=== PATIENT | male | born 1940 | race Caucasian/White ===

== ENCOUNTER 2017-03-02 05:54 | Inpatient (IN) | payer MEDICARE ==
[2017-03-02] VITALS (11 sets, daily range): BP systolic 101–154; BP diastolic 53–87; PULSE 55–71; RESP 13–20; O2SAT 92–99
[~2017-03-02] VITALS: Ht 182.9 cm; Wt 75.4 kg
[2017-03-02] MEDS: Lactated Ringer's 1,000 ML IV SCH ×3 (05:00→07:41)
[~2017-03-02 05:54] MED LIST: ASPI-973 PO; HYDR25TA4 PO; IPRA4AER IH; LEVO125T6 PO; LISI-567 PO; OMEG1CAP2 PO; SIMV40TA5 PO; TIOT18CA3 IH
[2017-03-02] MEDS ORDERED: CeFAZolin 2 Gm/50 mL D5W IV Premix IV ONE ×2 (06:00)
[2017-03-02] MEDS ORDERED: Gentamicin Inj 160 MG in Syringe 1 EACH IRRIGATION ONE (06:00)
[2017-03-02] MEDS ORDERED: Bupivacaine Liposome 1.3% 20 mL Inj ONE (07:17)
--- NOTE | 2017-03-02 07:19 | PCM.HPANE ---
Patient Data Surgeon Admitting Provider: Attending Provider:Jerome Tomlinson MD Primary Care Physician:Yogi Corey DO Other Provider:Moe Saleh Anesthesia Reason for Visit Right Shoulder Arthritis Ht/WT & BMI Height (Feet): 6 Height (Inches): 0.00 Weight (Kilograms): 75.4 Body Mass Index 22.00 Allergies Coded Allergies: No Known Allergies (Unverified , 02/22/17) Past Anesthesia History Anesthesia History: Denies:: Abnormal Airway, Anesthesia Reactions, Difficult Intubation, Fam Anesthesia Reaction, Fam Malignant Hypertherm, Malignant Hyperthermia Diabetes History Hx Diabetes?: No MRSA MRSA: No Medications Blood Thinner: Aspirin Hypertension Medication: Yes Home Meds Incl Beta [place]: No Reported Medications Tiotropium [place] (Spiriva)18 Mcg Cap.w.dev18 Mcg IH DAILY #1 PKG Ref 0 02/22/17 Simvastatin 40 Mg [id number] Mg PO HS 30 Days Ref 0 02/22/17 [place]-3 Acid Ethyl Esters (Lovaza)1 Gm Capsule2 Gm PO BID #30 CAPSULE Ref 0 02/22/17 Lisinopril 20 Mg [id number] Mg PO BID 30 Days Ref 0 02/22/17 Levothyroxine 125 Mcg [id number] Mcg PO DAILY For Thyroid Replacement Ref 0 02/22/17 Hydrochlorothiazide 25 Mg [id number] Mg PO DAILY 30 Days Ref 0 02/22/17 Albuterol/Ipratropium (Combivent Respimat Inhal [place])120 Spr/4 Gm Inhaler1 Puff IH BID #1 INH Ref 0 02/22/17 Aspirin 81 Mg [id number] Mg PO DAILY Ref 0 02/22/17 Last Time Dose Received Used spiriva and levothyroxine today No other meds History History of ENT Problems?: Yes HEENT History: Positive for:: Cataracts (bilateral surgery) Hearing Problem Denies:: Abnormal Airway Difficult Intubation Dysphagia Sinus Problem TMJ Denture Type: Full- Upper Full- Lower Teeth Condition: Missing Teeth Hx of Heart Problems?: Yes Cardiovascular History: Positive for:: Hypertension Valvular Heart Disease (echo 2013 ef 60-65%) Denies:: Abdominal Aortic Aneurism Atrial Fibrillation Cardiac Surgery Chest Pain Congestive Heart Failure Coronary Artery Disease Edema Heart Murmur Other History/Comments No CP or hx RI; Greater than 4 mets Hx of Respiratory Problem?: Yes Respiratory History: Positive for:: COPD Dyspnea (SORENSEN-INTERMITTANT PT FELLS THIS IS R/T COPD) Denies:: Asthma Emphysema Oxygen Administration Pneumonia Tuberculosis Use of C-PAP Machine Use of Inhalers / NEBS Other History/Comment Breathing at baseline Hx Neurologic Problems?: No Neurological History: Denies:: CVA Headaches Multiple Sclerosis Parkinson's Disease Seizures Hx of GI Problems?: Yes Hx of Problems?: No Genitourinary History: Denies:: Kidney Stones Urinary Tract Infection Male Hx: Denies:: Prostate Problems Scrotal Mass Testicular Surgery Skin History: Denies:: History Skin Disorders? Pressure Ulcers Hx Musculoskeletal Problems?: Yes Musculoskeletal History: Positive for:: Degenerative Joint Musculoskeletal Trauma (right shoulder current admission problem) Osteoarthritis Denies:: Back Injury Fibromyalgia Joint Replacement Hx of Psycho/Social Problems?: No Psycho Social History: Denies:: Anxiety Hx Depression Hx Surgeries?: Yes (UMBILICAL HERNIA RPR) Hx Any Other Health Problems?: Yes Other History: Positive for:: Thyroid Disease Denies:: Cancer Endocrine Disease Hospitalization History Blood Transfusions: Denies:: Blood Transfusions Hx Diabetes: No Hx Alcohol Use: NoHx Substance Use: No Smoking Status: Former Smoker Have You Smoked inLast 12 mo: No Stop/Bang S-Snoring: Do You Snore Loudly: No T-Tired: feel tired, fatigued: No O-Obsered: Observed not breath: No P-Blood Pressure: treated: Yes B- Body Mass Index > 35 kg/m2: No A- Age over 50: Yes N- Neck Large Circumference: No G- Gender Male: Yes SATNTON Total Score: 3 Risk Assessment Category Category 1A: Patient has history of documented sleep apnea, and HAS NOT received any narcotic, sedative or anesthesia administration during this stay. Category 1B: Patient has history of documented sleep apnea, and HAS received any narcotic , sedative or anesthesia administration during this stay Category 2: Patient has SUSPECTED Obstructive Sleep Apnea, and HAS received any narcotic , sedative or anesthesia administration during this stay. Category 3: Patient has SUSPECTED Obstructive Sleep Apnea and HAS NOT received narcotic, sedative or anesthesia administration during this stay. Category 4: Outpatient in Procedural Areas with known sleep apnea or who screen positive for High Risk via the STOP/BANG questionnaire. Exam Exam Vital Signs Vital Signs Date Time Temp Pulse Resp B/P Pulse Ox O2 Delivery O2 Flow Rate FiO2 03/02/17 06:24 36.3 66 16 154/87 99 Room Air General Appearance: Alert, Oriented X3 HEENT/AIRWAY: MP 2, Neck Movement (FROM) Lungs: Clear to Auscultation, Clear to Percussion Heart: Exam Unremarkable, Regular Rate/Rhythm Meds/Labs/Diagnostics Admission Meds Current Medications Lactated Ringer's (Lr) 1,000 ml @ 120 mls/hr [id number] IV Last administered on t 05:42; Start 03/02/17 at 05:00; Stop 03/02/17 at 13:19 Plan Impression Patient chart reviewed, patient interviewed and anesthestic plan with risks, benefits, and alternatives discussed, and informed consent obtained. ASA Physical Status: ASA2 Mod Systemic Disease Anesthetic Plan: Regional Block (ISC for post-op pain control per surgeon request) Bene/Risks/Altern/Consents: Yes HP Complete Prior to Induction: Yes Mynor Costa MD Mar 02, 2017 07:13
[2017-03-02] MEDS ORDERED: diphenhydrAMINE 25 mg Capsule PO PRN (07:20)
[2017-03-02] MEDS ORDERED: Sodium Biphos-Phos 133 mL Enema RECTAL PRN (07:20)
[2017-03-02] MEDS ORDERED: Magnesium Hydroxide 10 mL Oral Concentration PO PRN (07:20)
[2017-03-02] MEDS ORDERED: MetoCLOpramide 5 mg/mL 2 mL Inj IVPUSH PRN ×2 (07:20→08:35)
[2017-03-02] MEDS ORDERED: Polyethylene Glycol (PEG) 17 Gm Powder PO PRN (07:20)
[2017-03-02] MEDS ORDERED: HYDROcodone-APAP 5-325 mg Tablet PO PRN (07:20)
[2017-03-02] MEDS ORDERED: Ondansetron 2 mg/mL 2 mL Inj IVPUSH PRN ×2 (07:20→08:35)
[2017-03-02] MEDS ORDERED: Ketorolac 15 mg/mL Inj IVPUSH PRN (07:20)
[2017-03-02] MEDS ORDERED: Tranexamic Acid 100 mg/mL 10 mL Inj ONE (07:27)
[2017-03-02] MEDS ORDERED: 0.9% Sodium Chloride 200 ML ONE (07:27)
--- NOTE | 2017-03-02 07:35 | PCM.ORTHOP ---
Orthopedic Operative Report Date of Service: Mar 02, 2017 Pre Operative Diagnosis Right shoulder degenerative joint disease, biceps tendinitis Post Operative Diagnosis Same Procedure Right total shoulder arthroplasty, open biceps tenodesis Surgeon Surgeon: Jerome Tomlinson MD Assistants: Laya Sepulveda, Lluvia Stanley Indication for Procedure Right shoulder degenerative joint disease Findings Per Dictation Details of Procedure Implant: Arthrex univers vaultlock size large glenoid, stem size 10mm with 54/ 21 head The risks, benefits, indications and alternatives, including non-operative management of open reduction and plating were discussed with the patient in detail. The patient understood this operation would be strictly for pain control and would not necessarily improve the function of the arm. The patient voiced understanding of the risks and agreed to proceed. All questions were answered to the patients satisfaction. Verbal and written consent were obtained. Description of Operation: The patient was brought to the operating room. Time out was performed in the presence of the Orthopedic and the chief controller. Preoperative antibiotics were given. Interscalene block performed by anesthesia. General anesthesia was administered. The patient was placed in a beachchair position. The right arm was prepped and draped in the usual sterile fashion. A standard deltopectoral approach was made. Blunt dissection was carried through the interval to expose the subscapularis muscle after retracting the conjoined tendon medially. Care was taken to not damage nearby neurovascular structures. The anterior humeral circumflex vessels were ligated. Kimble scissors were used to cut through the rotator interval to expose the anatomic neck of the humerus. The subscapularis tendon was tagged using # 1 Ethibond sutures. The subscapularis tendon was cut longitudinally using a Bovie. The shoulder was slowly externally rotated while peeling the inferior capsule off of the humeral neck until the shoulder was dislocated and the humeral head was exposed. There were several small loose bodies in the subscapularis recess which were removed. There was extensive erosion and flattening of the humeral head. Extensive osteophytes were present over the periphery of the humeral head. 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 The subscapularis was tucked medially. The osteophytes around the humeral head were removed using an osteotome and mallet to expose the anatomic neck. The supraspinatus and infraspinatus were found to be intact and attached to the greater tuberosity. A neck cutting guide was placed and then the cut was made with 30 degrees of retroversion using a saw. The neck was sequentially broached to the proper fit. The head trial were placed until the proper fit was obtained. A head protector sleeve was placed on the cut surface. Using a Triatt retractor the glenoid was exposed. Circumferential exposure of the glenoid from the 1 o'clock position to the 7 o'clock position was done using a Bovie taking care to stay close to the bone. The glenoid was sized and then reamed appropriately. Peg holes were drilled along with the center hole. A trial implant was placed which fit well. After removing the trial, the wound was irrigated. The peg holes were filled with manually pressurized cement and the above mentioned glenoid component was impacted until an excellent fit was obtained. Attention was then taken to the humeral head. The humeral head trial was placed the the shoulder stability was verified after reduction and found to be appropriate. The trial head and stem were removed and proper inclination was noted. Multiple #2 Fiber-wire sutures were placed in the lateral subscapularis stump on the lesser tuberosity and then through the rim of the humeral neck. The implant was assembled on the back table. The wound was irrigated. The humeral implant was impacted into the humerus until the proper fit was obtained. The shoulder was reduced and excellent stability was tested and verified. The subscapularis was then repaired using the aforementioned Fiber-wire sutures and also an 0-Vicryl suture. A proximal biceps tenotomy was performed after a distal tenodesis was performed to the pec major.. The rotator interval was closed. Hemostasis was achieved. The wound was irrigated with copious saline. Local cocktail was used which included bupivicaine. Gentamicin was injected into the joint. IV transexamic acid was used preop and intraop. The wound was then closed in layers , dressed appropriately and the shoulder was placed in an immobilizer. The patient was extubated without difficulty and transferred to the PACU in stable condition. FLORAL DEPARTMENT SPECIALIST SURGEON: During the operation, the services of physician teacher assistant were medically indicated and necessary to provide exposure of the operative site for the surgical procedure and to maintain the limb in a proper position to carry out the operation safely and efficiently. Without the qualified supply chain assistant being present, it would have extended the operative procedure and made the procedure technically more difficult to perform. Nonweightbearing to affected upper extremity. Please leave sling on at all times. You may remove sling 3 times a day to move the elbow wrist and fingers. Do not move your shoulder. PROM only, IR to body, ER to 0 degrees, FF to 90 degrees, ABD to 0 degrees. Keep your arm at neutral, NO external rotation of the arm, no resisted IR of the arm. Please keep the affected extremity elevated when possible. You may use ice and/or heat as needed for comfort. Follow-up in 2 weeks with me with 2-view xrays and for suture removal and Steri -Strip application. Follow-up with me at 6 weeks. You will have pain medications , medication for constipation and continue your aspirin 81 mg daily Grafts, Implants: Implants-See Implant Record Complications There were no periprocedural complications identified. Condition Stable Anesthetic Administered: GA Catheters: None Output, Estimated Blood Loss: 50 Blood Admin during surgery: No Surgical Cast or Splint: Shoulder Immobilizer Surgical Specimen Removed: No Specimen sent to Pathology: No copies to: Jerome Tomlinson MD, Christopher L MD Mar 02, 2017 07:34
[2017-03-02] MEDS: Senna-Docusate 8.6-50 mg Tablet PO SCH ×2 (08:30→20:17)
[2017-03-02] MEDS ORDERED: Gentamicin 40 mg/mL 2 mL Inj INJ ONE (08:30)
[2017-03-02] MEDS ORDERED: Bacitracin 50,000 unit Inj IRRIGATION ONE (08:30)
[2017-03-02] MEDS ORDERED: HYDROmorphone 1 mg/mL Inj IVPUSH PRN (08:35)
[2017-03-02] MEDS ORDERED: fentaNYL-PF 50 mCg/mL 2 mL Inj IVPUSH PRN (08:35)
[2017-03-02] MEDS ORDERED: Lactated Ringer's 500 ML IV PRN (08:35)
[2017-03-02] MEDS ORDERED: Labetalol 5 mg/mL 20 mL Inj IV PRN (08:35)
[2017-03-02] MEDS ORDERED: Lactated Ringer's 1,000 ML IV SCH (08:35)
[2017-03-02] MEDS ORDERED: Atropine 0.4 mg/mL Inj IVPUSH PRN (08:35)
[2017-03-02] MEDS ORDERED: EPHEDrine Sulfate 50 mg/mL Inj IVPUSH PRN (08:35)
[2017-03-02] MEDS ORDERED: Phenylephrine 10,000 mCg/mL Inj IVPUSH PRN (08:35)
[2017-03-02] MEDS ORDERED: Hip/Knee Infiltration Cocktail INFILTRATE ONE ×7 (08:40)
--- NOTE | 2017-03-02 10:49 | PCM.ANEP1 ---
Post Anesthesia PACU Phase 1 Assessment Vital Signs Vital Signs Date Time Temp Pulse Resp B/P Pulse Ox O2 Delivery O2 Flow Rate FiO2 03/02/17 10:40 59 15 101/58 95 Nasal Cannula 2 03/02/17 10:25 58 13 105/53 96 Nasal Cannula 2 03/02/17 10:10 55 14 107/58 94 Nasal Cannula 2 03/02/17 10:05 64 16 101/53 92 Room Air 03/02/17 10:00 62 15 107/73 98 Simple Mask 10 03/02/17 09:55 36.8 64 17 134/62 98 Simple Mask 10 03/02/17 06:24 36.3 66 16 154/87 99 Room Air Anesthetic Administered: GA Level of Alertness: Awake, talking PAGAN's with Equal Strength: No (s/p interscalene block) Pain: No Nausea or Vomiting: No CV Function & Hydration Stable: Yes Airway Device: Lungs: Clear to Auscultation, Clear to Percussion PACU Phase 2 Assessment Complications: No Follow up Care: No Patient Instructions Provided: N/A Mynor Costa MD Mar 02, 2017 10:49
--- NOTE | 2017-03-02 10:56 | DRSVH ---
PROCEDURE: X-RAY RIGHT SHOULDER, MINIMUM TWO VIEWS ([id number]) INDICATIONS: POST RIGHT SHOULDER ARTHROPLASTY TECHNIQUE: 2 views of the shoulder were acquired. COMPARISON: None. FINDINGS: Bones: No fractures or dislocations. No suspicious bony lesions. Visualized ribs appear intact. Soft tissues: No suspicious soft tissue calcifications. IMPRESSION: Expected postsurgical changes after right total shoulder arthroplasty. Dictated by: Pascual Palm M.D. on 03/02/2017 at 10:55 Approved by: Pascual Palm M.D. on 03/02/2017 at 10:55
--- NOTE | 2017-03-02 11:00 | NUR ---
Arrived on Unit Patient arrived on floor from PACU in stable condition. Patient ambulated from stretcher to bed with SBA. Patient denies pain and nausea at this time. Interscalene block in place. Dressing CDI. VSS. A&Ox3. NS@80. RA 94%. Patient orientated to call light, bed, and how to order meals. Call light and tray table within reach. Will continue to monitor patient hourly.
[2017-03-02] MEDS: 0.9% Sodium Chloride 1,000 ML IV SCH ×2 (11:15→23:58)
[2017-03-02] MEDS ORDERED: Glycopyrrolate 0.2 MG/ML 1mL Inj ONE (11:24)
[2017-03-02] MEDS ORDERED: Dexamethasone 4 mg/mL Inj ONE (11:24)
[2017-03-02] MEDS ORDERED: EPHEDrine/NS 5 mg/mL 5 mL Syringe ONE (11:24)
[2017-03-02] MEDS ORDERED: Ondansetron 2 mg/mL 2 mL Inj ONE (11:24)
[2017-03-02] MEDS ORDERED: Propofol 10,000 mCg/mL 20 mL Inj ONE (11:24)
[2017-03-02] MEDS ORDERED: Succinylcholine Chloride 20 mg/mL 5 mL Inj ONE (11:24)
[2017-03-02] MEDS ORDERED: fentaNYL-PF 50 mCg/mL 2 mL Inj ONE (11:24)
--- NOTE | 2017-03-02 14:00 | NUR ---
Evaluation completed. Please go to "Notes" then click on "Assessments and Notes" (bottom left corner of screen). Then select appropriate discipline tab on top of screen. Addendum: 03/02/17 at 1401 by FRANDY BARTH PT Note in error
--- NOTE | 2017-03-02 14:01 | NUR ---
PT NOTE-- Patient evaluated by OT and mobilizing without difficulty. No PT needs at this time.
--- NOTE | 2017-03-02 14:07 | NUR ---
Evaluation completed. Please go to "Notes" then click on "Assessments and Notes" (bottom left corner of screen). Then select appropriate discipline tab on top of screen.
[2017-03-02] MEDS: CeFAZolin Inj 2 GM in IV Premix 1 EACH IV SCH (17:04)
[2017-03-02 19:14] LABS: APPEARANCE,URINE CLEAR (CLEAR,HAZY); COLOR,URINE YELLOW (YELLOW); OCCULT BLOOD,URINE NEGATIVE (NEGATIVE); UROBILINOGEN,URINE NORMAL (NORMAL)
[2017-03-02] MEDS: Tiotropium 18mcg/Cap 5 Capsule Inhaler Kit INHALATION SCH (20:40)
[2017-03-02] MEDS ORDERED: Albuterol-Ipratropium 3 mL Inhalation Solution NEB SCH (21:30)
--- NOTE | 2017-03-02 21:30 | NUR ---
Home Meds Pt. reported his concerns about whether his home meds were going to be re-started. Basil Thomas PA-C was paged, and ordered pt's home meds on the eMAR.
[2017-03-02] MEDS: Omega-3 Fatty Acids 1,000 mg Capsule PO SCH (22:03)
[2017-03-03] MEDS: CeFAZolin Inj 2 GM in IV Premix 1 EACH IV SCH (00:01)
[2017-03-03 00:30] VITALS: BP 110/69; PULSE 63; RESP 16; O2SAT 95
--- NOTE | 2017-03-03 03:48 | NUR ---
Activity Pt. has denied pain so far this shift, and reports increasing sensation throughout arm. Pt. has been to the bathroom several times tonight to void. Will continue to monitor.
[2017-03-03 04:40] VITALS: BP 125/75; PULSE 65; RESP 20; O2SAT 97
[2017-03-03] MEDS ORDERED: Bupivacaine Liposome 1.3% 20 mL Inj INFILTRATE SCH (06:00)
[2017-03-03] MEDS: Omega-3 Fatty Acids 1,000 mg Capsule PO SCH (07:54)
[2017-03-03] MEDS: Senna-Docusate 8.6-50 mg Tablet PO SCH (07:55)
[2017-03-03] MEDS: 0.9% Sodium Chloride 1,000 ML IV SCH (08:19)
--- NOTE | 2017-03-03 08:34 | PCM.PNORTH ---
Subjective Date of Service: Mar 03, 2017 Visit Information: Reason for Visit Right Shoulder Arthritis Surgery/Surgery Date RIGHT TOTAL SHOULDER REPLACEMENT 03/02/17 Post-Op Day # 1 Date of Admission: Mar 02, 2017 at 11:23 Hospital Day # Subjective Patient reports very minimal pain. He was seen by OT last night. He has been out of bed to the bathroom. He feels comfortable with the sling Postop General: No Complaints, No Shortness of Breath, No Chest Pain, Good Appetite Pain Management: PO Objective Exam Objective Patient is seen sitting up in bed with shoulder immobilizer in place Vital Signs and I/O Vital Sign - Last Date Time Temp Pulse Resp B/P Pulse Ox O2 Delivery O2 Flow Rate FiO2 03/03/17 04:40 36.7 65 20 125/75 97 Room Air 03/02/17 10:51 2 Intake and Output 03/02/17 03/02/17 03/03/17 Cumulative From/Thru 15:00 23:00 07:00 02/22/17 15:08 - 03/03/17 06:38 Intake Total 960 ml 1386 ml 2101 ml 4447 ml Output Total 150 ml 40 ml 675 ml 865 ml Balance 810 ml 1346 ml 1426 ml 3582 ml Intake Oral 800 ml 1200 ml 2000 ml IV Total 960 ml 586 ml 901 ml 2447 ml Output Urine Total 40 ml 675 ml 715 ml Estimated Blood Loss 150 ml 150 ml # Voids 5 5 # Bowel Movements 0 0 Lab & Micro Results Laboratory Tests Test 03/02/17 18:29 Urine Color Yellow (YELLOW) Urine Appearance Clear (CLEAR,HAZY) Urine pH 5.0 (5.0-8.0) Urine Specific [place] 1.025 (1.003-1.035) Urine Protein Tracemg/dL (NEG,TRACE) Urine Glucose (UA) Negativemg/dL (NEGATIVE) Urine Ketones Negativemg/dL (NEGATIVE) Urine Occult Blood Negative (NEGATIVE) Urine Nitrite Negative (NEGATIVE) Urine Bilirubin Negative (NEGATIVE) Urine Urobilinogen Normalmg/dL (NORMAL) Urine Leukocyte Esterase Negative (NEGATIVE) Urine RBC 0-2/hpf (0-2) Urine WBC 0-5/hpf (0-5) Urine Epithelial Cells Few/hpf (NONE-MOD) Urine Crystals None seen (NONE SEEN) Urine Bacteria Few/hpf (NONE-FEW) Urine Hyaline Casts None/lpf (NONE) Urine Granular Casts None seen (NONE SEEN) Urine Waxy Casts None seen (NONE SEEN) Urine Red Blood Cell Casts None seen (NONE SEEN) Urine White Blood Cell Casts None seen (NONE SEEN) Urine Mucus None seen (None Seen) Urine Trichomonas None seen (NONE SEEN) Urine Yeast None (NONE SEEN) Urinalysis Comment None Urine Culture Reflexed Not indicated General Appearance: Alert, Oriented X3, Cooperative, No Acute Distress Extremities: Distal Pulses Palpable Postop Sensory Motor: Distal Motor Intact, Movement in Fingers, Distal Sensation Intact, NVI Distally SURGICAL WOUND : Wound Location/Description Right shoulder: Surgical dressing is clean dry and intact. Shoulder immobilizer is in place Catheters: None Assessment & Plan Impression POD 1 right total shoulder arthroplasty Problems: Plan Nonweightbearing right upper extremity with shoulder immobilizer OT will see patient today for instruction in how to don and doff the shoulder immobilizer Discharge home today. Discharge instructions: Activity: Patient may remove sling 3 times a day to move the elbow, wrist and fingers. Do not move your shoulder. Keep your arm at neutral, NO external rotation of the arm. Please keep the affected extremity elevated when possible ( sitting up). You may use ice and/or heat as needed for comfort. Dressing: patient will change dressing on POD #2 Follow-up in [address] Tomlinson with 2-view xrays and for suture removal and Steri-Strip application. and at 6 weeks post op. Pain Management: [place] is ordered but the patient has not used any VTE Prophylaxis: Other (Aspirin 81 mg ) Resuscitation Status: CPR: Attempt Resuscitation Lance CreekYaquelin Redd PA-C Mar 03, 2017 08:34
--- NOTE | 2017-03-03 09:42 | PCM.DIOPOR ---
OP Ortho Discharge Instruction Dates of Hospitalization Date of Discharge: Mar 03, 2017 Providers Admitting Physician: Jerome Tomlinson MD Primary Care Physician: Yogi Corey DO Attending Physician: Jerome Tomlinson MD Diagnosis at Time of Discharge Post operative diagnosis Status post right total shoulder arthroplasty Diet Discharge Diet: No restrictions Activity Activity-General: Be up and about, Balance rest and activity Right Upper Extremity: Non-weight bearing Range of motion restrictions: No active motion of the right shoulder 3 times a day the patient may perform motion of the elbow, wrist and fingers of the right hand No lifting, carrying, pushing, pulling or leaning on the right arm Discharge Assist Device: Shoulder Immobilizer Dressing and Incisional Care Dressing Care: Keep dressing clean, dry & intact, Other (leave Steri-Strips in place. We will remove them in the office) Hygiene: May shower (instructions below), DO NOT soak incision under water, NO bathtub, hot tub or whirlpool Additional Instructions Discharge Instructions Dressing Care: Keep dressing clean, dry & intact. On Tuesday you may remove the surgical dressing and apply a new bandage Discharge Hygiene: May shower (see instructions below) Weightbearing as tolerated with walker Wear the compression stockings for a few days On Tuesday, you may shower if the wound has no drainage present. Wound may be uncovered to shower. Let soap and water run over the wound, pat dry and apply a new dressing. Follow Up Plan Follow Up Plan At [facility] in [address] Tomlinson with x-ray, and at 6 weeks postop Call your provider for: Fever, Chills, Shortness of breath, Vomitting, Drainage at incision (that is increasing), Wound redness (that is spreading), Increasing pain (for no reason) Yaquelin Leary PA-C Mar 03, 2017 09:42
--- NOTE | 2017-03-03 09:45 | PCM.DC.ORT ---
Discharge Summary Date of Service: Mar 03, 2017 Date of Hospital Admission: Mar 02, 2017 at 11:23 Date of Surgery: Mar 02, 2017 Date of Discharge: Mar 03, 2017 Reason for Hospitalization: Right shoulder arthritis Procedures Performed: Right total shoulder arthroplasty Hospital Course: The patient was admitted to the hospital on 03/02/2017 and underwent the above procedure. Antibiotic prophylaxis consisting of Ancef and vancomycin. The surgeon was Dr. Tomlinson. Patient tolerated the procedure well and was transferred to recovery room in stable condition. Patient had occupational therapy to work on transfers, ADLs and how to don and doff a shoulder immobilizer. Nonweightbearing right upper extremity. The patient never took any pain medication. DVT prophylaxis: BARNEY hose, aspirin.Patient progressed well and on POD-2 was discharged home. Follow-up: at [facility] 2 weeks postop for wound check and x-rays and at [address] Tomlinson. Diagnosis at Time of Discharge Status post right total shoulder arthroplasty Problems: Disposition: Discharged home in stable condition Discharge Instructions: Activity-General: Be up and about, Balance rest and activity Right Upper Extremity: Non-weight bearing Range of motion restrictions: No active motion of the right shoulder 3 times a day the patient may perform motion of the elbow, wrist and fingers of the right hand No lifting, carrying, pushing, pulling or leaning on the right arm Discharge Assist Device: Shoulder Immobilizer Dressing and Incisional Care Dressing Care: Keep dressing clean, dry & intact, Other (leave Steri-Strips in place. We will remove them in the office) Hygiene: May shower (instructions below), DO NOT soak incision under water, NO bathtub, hot tub or whirlpool Dressing Care: Keep dressing clean, dry & intact. On Tuesday you may remove the surgical dressing and apply a new bandage Discharge Hygiene: May shower (see instructions below) Weightbearing as tolerated with walker Wear the compression stockings for a few days On Tuesday, you may shower if the wound has no drainage present. Wound may be uncovered to shower. Let soap and water run over the wound, pat dry and apply a new dressing. Albuterol/Ipratropium (Combivent Respimat Inhal [place]) 120 Spr/4 Gm Inhaler 1 PUFF IH BID Aspirin (Aspirin) 81 Mg Tablet 81 MG PO DAILY Hydrochlorothiazide (Hydrochlorothiazide) 25 Mg Tablet 25 MG PO DAILY Hydrocodone-Acetaminophen 5-325 mg (Hydrocodone-Acetaminophen 5-325 mg) 1 Each Tablet 1-2 TABLET PO Q4H PRN PRN For Moderate Pain Levothyroxine (Levothyroxine) 125 Mcg Tablet 125 MCG PO DAILY Lisinopril (Lisinopril) 20 Mg Tablet 20 MG PO BID [place]-3 Acid Ethyl Esters (Lovaza) 1 Gm Capsule 2 GM PO BID Simvastatin (Simvastatin) 40 Mg Tablet 40 MG PO HS Tiotropium [place] (Spiriva) 18 Mcg Cap.w.dev 18 MCG IH DAILY Yaquelin Leary PA-C Mar 03, 2017 09:45
[2017-03-03] MEDS ORDERED: HYDR-4003 PO (09:53)
[2017-03-03] MEDS: Tiotropium 18mcg/Cap 5 Capsule Inhaler Kit INHALATION SCH (10:00)
--- NOTE | 2017-03-03 10:54 | NUR ---
Social Work: Initial Assessment/Discharge/Multidisciplinary Rounds D: EMR reviewed. Please see Initial Assessment linked to this note for more information. Pt is a 76 year old male admitted IN elective shoulder surgery per H&P. Pt's insurance is Medicare and [employer]. PCP is Yogi Corey DO. Pt discussed in multidisciplinary rounds, pt is POD 1. Pt to discharge home. Discharge orders are written. SW met with pt at bedside to conduct initial assessment. Pt was alert and oriented x3. SW explained role and wrote phone number on white board. SW provided [facility] Discharge Planning Checklist and encouraged pt to contact SW for any discharge planning questions. Pt's designated d/c planning call or contact centre team leader is IRA Isabelle [phone]. Isabelle is going to assist pt at discharge. Pt lives at in a 5[address] wheel with his SO in [facility]. Pt is independent with all ADLs at baseline. Pt uses no DME at baseline. Pt drives. Pt has no HH or SNF history. Pt has no LTC or VA benefits. Pt has no DPOA on file, declined information at bedside. Pt is likely to d/c home with SO to transport via POV. No d/c needs identified. Pt agreeable to plan. A: Pt who is independent at baseline and has the capacity for self-care. P: Pt anticipated to discharge home with SO to transport via POV. No SW needs identified, no MD orders received at this time. No discharge needs. LEONARDO Christina Addendum: 03/03/17 at 1057 by HELENA FU Amended: Links added.
--- NOTE | 2017-03-03 11:16 | NUR ---
Discharge Pt discharged to home with spouse via private vehicle at 1115 hrs. PIV removed intact. VSS. No c/o of pain. Rt arm immobilized in sling. Full sensation in right hand and fingers. All personal possessions sent with pt. Instructed pt on signs and symptoms of infection. Review mobility restrictions: no wt bearing, no lifting or carrying with the right arm. Pt to contact provider to verify showering/bathing instructions. Advised pt to keep dressing clean, dry, and intact until he could verify that it was okay to shower. Gave pt follow up instructions. Pt expressed verbal understanding of all of the above.
[2017-03-04] MEDS ORDERED: Hip/Knee Infiltration Cocktail INFILTRATE ONE ×7 (06:00)
[2017-03-04] MEDS ORDERED: Bupivacaine Liposome 1.3% 20 mL Inj INFILTRATE ONE (06:00)
== END 2017-03-03 11:15 | disposition home or self-care (01) | DRG 483 ==
LOC: SAS 05:54 → OSC 11:23
PROVIDERS: ADMIT Orthopaedic Surgery; ATTEND Orthopaedic Surgery
PROC: 0RRJ00Z Replacement of Right Shoulder Joint with Reverse Ball and Socket Synthetic Substitute, Open Approach (ICD-10-PCS; principal; 2017-03-02 07:30)
DX: M19.011 Primary osteoarthritis, right shoulder (principal); M75.21 Bicipital tendinitis, right shoulder; I10 Essential (primary) hypertension